=== PATIENT | female | born 1980 | race Caucasian/White ===

== ENCOUNTER 2024-07-26 19:17 | Emergency (ER) | payer MEDICAID ==
[~2024-07-26] VITALS: Ht 170.2 cm; Wt 72.3 kg
[2024-07-26 19:25] VITALS: TEMP 98
[2024-07-26] MEDS ORDERED: iohexol 300mg/ml 100ml inj. ONE (19:49)
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
[2024-07-26] MEDS: ketorolac trometh 15mg/ml vial 15 MG/ML ML IV ONE (21:38)
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
[2024-07-26 22:06] VITALS: BP 126/66; PULSE 70; RESP 15; O2SAT 97
--- NOTE | 2024-07-26 22:16 | RADIOLOGY REPORT ---
Clinical History CP Comparison None Technique: frontal chest x-ray Without Contrast MICHELLE CASON, [id number] Findings: Heart - normal lungs - no consolidation. bones - no acute fracture. Other- Impression: 1. No acute cardiopulmonary disease This report was electronically signed by Armand Neff MD on 07/26/2024 10:13:41 PM.
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
== END 2024-07-27 00:38 | disposition left against medical advice (07) ==
LOC: ER 19:18
DX: Z04.1 Encounter for examination and observation following transport accident (principal); R07.9 Chest pain, unspecified; R10.9 Unspecified abdominal pain; R51.9 Headache, unspecified; V89.2XXA Person injured in unspecified motor-vehicle accident, traffic, initial encounter; Y92.410 Unspecified street and highway as the place of occurrence of the external cause; Y93.89 Activity, other specified; Y99.8 Other external cause status
CPT/HCPCS: 70450; 71045; 71260; 72125; 74177; 96374; 99285; J1885; Q9967

== ENCOUNTER 2024-10-14 15:45 | Emergency (ER) | payer MEDICAID ==
[~2024-10-14] VITALS: Ht 175.3 cm; Wt 71.0 kg
--- NOTE | 2024-10-14 16:31 | ELECTROCARDIOGRAPH REPORT ---
[facility] Test Date: 2024-10-14 Test Time: 16:27:51 Pat Name: MICHELLE CASON Department: EMERGENCY ROOM Room: Gender: F Contract Officer: : 1980 Requested By: SANJIV VAZQUEZ Order Number: [id number] Reading MD: Dr. Eduar Crowley Measurements Intervals [place] Rate: 69 P: 71 [place]: 108 QRS: 76 QRSD: 97 T: 37 QT: 389 QTc: 417 Interpretive Statements Sinus rhythm Short [place] interval Electronically Signed On 10-15-2024 19:29:[address] Eduar Crowley Please click the below link to view image of tracing.
[2024-10-14 16:38] LABS: MEAN PLATELET VOLUME 8.3 FL (7.4-10.4); RED CELL DISTRIBUTION WIDTH 13.4 % (11.5-14.5)
--- NOTE | 2024-10-14 16:53 | RADIOLOGY REPORT ---
DI CHEST,SINGLE VIEW, HISTORY: CP COMPARISON: DI CHEST,SINGLE VIEW on DOS: 07/26/24 DI CHEST,SINGLE VIEW on DOS: 07/26/24 TECHNICAL DATA: 1 view of the chest was obtained. FINDINGS: Lines and tubes: None Cardiomediastinal silhouette: normal Pulmonary vasculature: normal Lung expansion: normal Lung airspace: normal Lung interstitium: normal Pleura: normal Pneumothorax: no Bones: Unremarkable Other: no IMPRESSION: No acute intrathoracic abnormality.
[2024-10-14 17:23] LABS: CREATININE 1.23 MG/DL (0.40-0.90); PRO BRAIN NATRIURETIC PEPTIDE 291 PG/ML (0-125); TOTAL CARBON DIOXIDE 27.1 MMOL/L (24-32); eCRCL 62 ML/MIN; eGFR 48 ML/MIN
[2024-10-14 17:39] LABS: LEUKOCYTE ESTERASE ,URINE NEGATIVE (Neg); NITRITES, URINE NEGATIVE (Neg); OCCULT BLOOD,URINE TRACE-INTACT (Neg)
[2024-10-14 17:44] LABS: URINE HCG NEGATIVE (NEG)
[2024-10-14 17:52] LABS: UA COLLECTION TYPE NON-SPECIFIED
[2024-10-14 18:01] LABS: RENAL CELLS, URINE FEW /HPF; SQUAMOUS EPITHELIAL CELL,UR MANY /LPF (FEW)
[2024-10-14] MEDS: hydrALAZINE 20mg/ml inj. IV ONE (19:21)
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
[2024-10-14] MEDS ORDERED: LISI10TA27 PO (20:37)
[2024-10-14 20:43] VITALS: BP 202/103; PULSE 82; RESP 16; TEMP 97.9; O2SAT 99
== END 2024-10-14 20:49 | disposition home or self-care (01) ==
LOC: ER 15:45
DX: I10 Essential (primary) hypertension (principal); R53.81 Other malaise; F15.10 Other stimulant abuse, uncomplicated; E11.9 Type 2 diabetes mellitus without complications; Z86.73 Personal history of transient ischemic attack (TIA), and cerebral infarction without residual deficits; Z20.2 Contact with and (suspected) exposure to infections with a predominantly sexual mode of transmission
CPT/HCPCS: 36415; 71045; 80048; 81001; 81025; 82948; 83880; 84484; 85025; 93005; 96374; 99285; J0360